=== PATIENT | female | born 1990 | race Caucasian/White ===

== ENCOUNTER 2016-12-07 17:21 | Emergency (ER) | payer OTHER ==
[~2016-12-07] VITALS: Ht 165.1 cm; Wt 55.0 kg
[~2016-12-07 17:21] MED LIST: FERR27TA; PREN1TAB82
[2016-12-07 17:29] VITALS: Ht 165.1 cm; Wt 55.0 kg
[2016-12-07] MEDS ORDERED: SOD CHLORIDE 0.9% 500 ML IV STA (18:50)
[2016-12-07] MEDS ORDERED: ACETAMINOPHEN 500 MG TAB PO STA (18:50)
--- NOTE | 2016-12-07 19:03 | ERD ---
ER Documentation Chief Complaint Date/Time DATE: 12/07/16 TIME: 19:00 Chief Complaint FEVER X 3 DAYS,WEAKNESS HPI This is a 26-year-old female, very poor historian who presents emergency room with multiple issues. She describes subjective fevers for approximately 3 days. Generalized weakness. History of anemia. She also states that she recently used IV drugs approximately 4 days ago. She also describes vaginal discharge. She is unsure if she was . The patient denies any sick contacts or recent antibiotics. No dysuria but mild urinary frequency. ROS All systems reviewed and are negative except as per history of present illness. Medications Home Meds Active Scripts Cephalexin* (Keflex*) 500 Mg Capsule, 500 MG PO BID for 7 Days, CAP Prov:PRABHJOT DIXON MD 12/07/16 Ibuprofen* (Motrin*) 800 Mg Tab, 800 MG PO Q6H Y for PAIN AND OR ELEVATED TEMP, #30 TAB Prov:PRABHJOT DIXON MD 12/07/16 Reported Medications Ferrous Sulfate (Iron) 1 Tab Tablet 11/20/10 Vit/Fe Fumarate/Fa ( Vitamin Tablet) 1 Tab Tablet 11/20/10 Allergies Allergies: Coded Allergies: No Known Drug Allergy (Verified Allergy, Unknown, 05/17/08) PMhx/Soc History of Surgery: Yes ( x 3) Anesthesia Reaction: No Hx Neurological Disorder: No Hx Respiratory Disorders: No Hx Cardiac Disorders: No Hx Psychiatric Problems: Yes (drug addiction) Hx Miscellaneous Medical Probl: No Hx Alcohol Use: No Hx Substance Use: Yes (meth 4 days ago) Hx Tobacco Use: Yes Smoking Status: Current every day smoker FmHx Family History: No diabetes Physical Exam Vitals Vital Signs Date Time Temp Pulse Resp B/P Pulse Ox O2 Delivery O2 Flow Rate FiO2 12/07/16 21:27 98.7 119 17 103/61 100 Room Air 12/07/16 17:29 100.1 104 18 117/58 98 Physical Exam General: Well developed, well nourished, no acute distress Head: Normocephalic, atraumatic. Eyes: Pupils equally reactive, EOM intact ENT: Moist mucous membranes Neck: Supple, no lymphadenopathy Respiratory: Lungs clear bilaterally, no distress Cardiovascular: Slight tachycardia, no murmurs, rubs, or gallops Abdominal: Soft, non-tender, non-distended, no peritoneal signs : Normal external female genitalia, speculum exam with scant discharge, bimanual exam without cervical motion tenderness or adnexal fullness or tenderness MSK: No edema, no unilateral swelling, 5/5 strength Neurologic: Alert and oriented, moving all extremities, normal speech, no focal weakness, no cerebellar signs, no meningismus Skin: No rash Psych: Normal mood Result Diagram: 12/07/16193412/07/161934 Results 24 hrs Laboratory Tests Test 12/07/16 19:00 12/07/16 19:07 12/07/16 19:35 Urine Color LT. YELLOW Urine Clarity CLEAR Urine pH 6.5 Urine Specific [place] 1.015 Urine Ketones TRACE Urine Nitrite POSITIVE Urine Bilirubin NEGATIVE Urine Urobilinogen 0.2 E.U./dL Urine Leukocyte Esterase 1+ Urine Microscopic RBC 5-10/HPF Urine WBC Clumps FEW Urine Microscopic WBC >50/HPF Urine Squamous Epithelial Cells FEW Urine Bacteria MANY Urine Hemoglobin 3+ Urine Glucose NEGATIVE% Urine Total Protein 1+ Bedside Urine pH (LAB) 6.5 Bedside Urine Protein (LAB) 2+ Bedside Urine Glucose (UA) Negative Bedside Urine Ketones (LAB) Negative Bedside Urine Blood 2+ Bedside Urine Nitrite (LAB) Positive Bedside Urine Leukocyte Esterase (L 1+ White Blood Count 9.510^3/ul Red Blood Count 4.3310^6/ul Hemoglobin 13.0g/dl Hematocrit 40.3% Mean Corpuscular Volume 93.1fl Mean Corpuscular Hemoglobin 30.0pg Mean Corpuscular Hemoglobin Concent 32.3g/dl Red Cell Distribution Width 13.8% Platelet Count 80661^3/UL Mean Platelet Volume 11.3fl Neutrophils % 77.4% Lymphocytes % 12.0% Monocytes % 9.9% Eosinophils % 0.2% Basophils % 0.1% Nucleated Red Blood Cells % 0.0/100WBC Neutrophils # 7.310^3/ul Lymphocytes # 1.110^3/ul Monocytes # 0.910^3/ul Eosinophils # 0.010^3/ul Basophils # 0.010^3/ul Nucleated Red Blood Cells # 0.010^3/ul Sodium Level 137mmol/L Potassium Level 3.9mmol/L Chloride Level 96mmol/L Carbon Dioxide Level 28mmol/L Anion Gap 17 Blood Urea Nitrogen 9mg/dl Creatinine 0.62mg/dl Glucose Level 127mg/dl Calcium Level 8.8mg/dl Serum HCG, Qualitative NEGATIVE Current Medications Medications (Trade) Dose Ordered Sig/Los Route PRN Reason Start Time Stop Time Status Last Admin Dose Admin Sodium Chloride (NS) 500 ml @ 500 mls/hr Q1H STAT IV 12/07/16 18:50 12/07/16 19:49 DC 12/07/16 19:41 Acetaminophen (Tylenol Tab) 1,000 mg ONCE STAT PO 12/07/16 18:50 12/07/16 18:54 DC 12/07/16 19:40 Azithromycin (Zithromax) 1,000 mg ONCE STAT PO 12/07/16 19:17 12/07/16 19:19 DC 12/07/16 19:40 Ceftriaxone Sodium (Rocephin) 250 mg ONCE STAT IM 12/07/16 19:17 12/07/16 19:19 DC 12/07/16 19:40 Procedures/MDM EKG, MONITORS, & DIAGNOSTIC IMAGING: Chest x-ray: I reviewed and interpreted a 1 view of the chest Mediastinum: No enlargement Cardiac silhouette: No cardiomegaly Airspace: Clear lung [place] bilaterally without evidence of pneumothorax Bones: No evidence of fracture Pelvic ultrasound: No acute intrapelvic process. Nonspecific cyst LAB INTERPRETATION: No leukocytosis, evidence of urinary tract infection, negative ECG MEDICAL DECISION MAKING: The patient's symptoms are most likely secondary to viral syndrome. However given the patient's IV drug abuse, vaginal discharge cannot rule out PID, TOA, IV drug abuse associated infection. No murmur, no suggestion of endocarditis at this time. The patient will benefit from laboratory testing, IV fluids, antipyretics. She is otherwise well-appearing in the ER. ER COURSE: The patient is requesting treatment for STD. She was given ceftriaxone and azithromycin. On clinical exam she does not have evidence of PID or TOA. Pelvic ultrasound is negative. Urinalysis consistent with UTI. No evidence of pyelonephritis. The patient has a normal white count, no murmur, no evidence of IV drug abuse related illness. The patient will be initiated on Keflex for urinary tract infection. She was advised to follow-up with primary care physician and return for any worsening symptoms. I kept the patient and/or family informed of laboratory and diagnostic imaging results throughout the emergency room course. DISPOSITION PLAN: We discussed follow up with the patient's primary care doctor within 24 to 48 hours as needed. We also discussed return to the emergency room for worsening symptoms or worsening condition. Outpatient referral: [None required] Discharge Medications: Keflex, Motrin Departure Diagnosis: Primary Impression: Urinary tract infection Urinary tract infection type: acute cystitis Hematuria presence: without hematuria Qualified Code: N30.00 - Acute cystitis without hematuria Additional Impression: Sexually transmitted disease Condition: Stable PRABHJOT DIXON MD Dec 07, 2016 19:03
[2016-12-07 19:07] LABS: URINE BLOOD (Dip) POC 2+ (NEGATIVE)
[2016-12-07] MEDS ORDERED: AZITHROMYCIN 250 MG TAB PO STA (19:17)
[2016-12-07] MEDS ORDERED: CEFTRIAXONE 250 MG INJ IM STA (19:17)
[2016-12-07 19:25] LABS: ADD SCAN DIFF NO
[2016-12-07 19:26] LABS: ADD UMIC YES; URINE BILIRUBIN (Dip) NEGATIVE (NEGATIVE); URINE BLOOD (Dip) 3+ (NEGATIVE); URINE COLOR LT. YELLOW (YELLOW); URINE GLUCOSE (Dip) NEGATIVE (NEGATIVE); URINE KETONES (Dip) TRACE (NEGATIVE); URINE LEUKOCYTE ESTERASE (Dip) 1+ (NEGATIVE); URINE NITRITE (Dip) POSITIVE (NEGATIVE); URINE TOTAL PROTEIN (Dip) 1+ (NEGATIVE); URINE UROBILINOGEN (Dip) 0.2 E.U./dL (0.1-1.0)
[2016-12-07 19:48] LABS: BASOPHILS % 0.1 % (0.0-2.0); EOSINOPHILS % 0.2 % (0.0-7.0); HEMATOCRIT 40.3 % (37.0-47.0); LYMPHOCYTES # 1.1 10^3/ul (0.8-2.9); MEAN CORPUSCULAR HGB CONC 32.3 g/dl (32.0-37.0); MEAN CORPUSCULAR VOLUME 93.1 fl (82.0-101.0); MEAN PLATELET VOLUME 11.3 fl (7.4-10.4); MONOCYTE # 0.9 10^3/ul (0.3-0.9); MONOCYTES % 9.9 % (0.0-11.0); NEUTROPHIL # 7.3 10^3/ul (1.6-7.5); NEUTROPHILS % 77.4 % (39.0-77.0); PLATELET COUNT 204 10^3/UL (140-415); RED BLOOD COUNT 4.33 10^6/ul (4.20-5.40); RED CELL DISTRIBUTION WIDTH 13.8 % (11.5-14.5); WHITE BLOOD COUNT 9.5 10^3/ul (4.8-10.8)
[2016-12-07 19:54] LABS: POTASSIUM 3.9 mmol/L (3.5-5.1)
[2016-12-07 19:56] LABS: CREATININE 0.62 mg/dl (0.44-1.00)
[2016-12-07 19:57] LABS: CALCIUM 8.8 mg/dl (8.4-10.2)
[2016-12-07 21:05] LABS: BACTERIA,URINE MANY; SQUAMOUS EPITHELIAL CELL,UR FEW
--- NOTE | 2016-12-07 21:10 | RADRPT ---
PROCEDURE: US Pelvis CLINICAL INDICATION: Pelvic pain TECHNIQUE: Sonographic evaluation of the pelvis was performed utilizing both transabdominal and tr ansvaginal technique. Curved array transabdominal transducer technique as well as a high frequency endovaginal probe was utilized. Images were reviewed on the high-resolution PACS workstation. COMPARISON: None available FINDINGS: The uterus is normal in size, echogenicity, and morphology measuring 7.7 x 4.0 x 7.3 cm in dimension . The uterus is anteverted in normal position. The endometrium measures 4.5 mm in diameter. The normal trilaminar stripe of the endometrium is preserved. The right ovary measures 5.2 x 2.8 x 3.4 cm in dimension, and demonstrates a 2.0 cm simple cyst. Th e left ovary measures 2.9 x 2.2 x 2.5 cm in dimension. No ovarian torsion, adnexal mass or pelvic f ree fluid is identified. IMPRESSION: 1. The right ovary demonstrates a 2.0 cm simple cyst. 2. Otherwise unremarkable pelvic ultrasound. RPTAT: HDWR .Partha Gonzalez MD, Date Time Electronically viewed and signed by .Partha Gonzalez MD, MD on 12/07/2016 21:10 .R/
--- NOTE | 2016-12-07 21:11 | RADRPT ---
PROCEDURE: XR Chest. CLINICAL INDICATION: Fever TECHNIQUE: Single frontal chest x-ray. COMPARISON: None. FINDINGS: No acute infiltrate, pleural effusion or pneumothorax is identified. Cardiomediastinal silhouette i s within normal limits. The osseous structures are unremarkable. IMPRESSION: 1. No evidence of acute cardiopulmonary process. RPTAT: HDWR .Partha Gonzalez MD, MD Date Time Electronically viewed and signed by .Partha Gonzalez MD, on 12/07/2016 21:10 .R/
[2016-12-07] MEDS ORDERED: CEPH-443 PO (21:18)
[2016-12-07] MEDS ORDERED: IBUP800T25 PO (21:18)
[2016-12-07 21:27] VITALS: BP 103/61; PULSE 119; RESP 17; TEMP 98.7
== END 2016-12-07 21:28 | disposition home or self-care (01) ==
LOC: FTE 17:21
DX: N30.00 Acute cystitis without hematuria (principal); A64 Unspecified sexually transmitted disease; F17.210 Nicotine dependence, cigarettes, uncomplicated; R10.2 Pelvic and perineal pain
CPT/HCPCS: 71010; 76830; 76856; 80048; 81001; 84703; 85025; 87070; 87086; 87591; 96372; J0696; J7040; Z7502; Z7610; 81003